=== PATIENT | female | born 1940 | race Caucasian/White ===

== ENCOUNTER → 2024-05-06 11:28 | Outpatient (REF) | payer MEDICARE, OTHER, SELFPAY ==
[2024-05-06 12:59] LABS: ALT (SGPT) 25 U/L (0-35); AST (SGOT) 35 U/L (14-36); Albumin 4.4 g/dl (3.5-5.0); Alkaline Phosphatase 58 U/L (38-126); Direct Bilirubin 0.2 mg/dl (0.0-0.4); HDL Cholesterol 51 mg/dl; LDL Cholesterol, Calculated 86 mg/dl; Total Bilirubin 1.2 mg/dl (0.2-1.3); Total Cholesterol 172 mg/dl (50-199); Total Protein 7.1 g/dl (6.3-8.2); Triglyceride 179 mg/dl (10-149); Very Low Density Lipoprotein 35 mg/dl (0-30)
== END ==
LOC: REG 11:28
PROVIDERS: ATTENDING PHYSICIAN Internal Medicine Cardiovascular Disease; FAMILY PHYSICIAN Internal Medicine
DX: E78.00 Pure hypercholesterolemia, unspecified (principal)
CPT/HCPCS: 36415; 80061; 80076

== ENCOUNTER 2024-07-30 05:21 | Emergency (ER) | payer MEDICARE, OTHER, SELFPAY ==
[2024-07-30 05:26] VITALS: BP 182/80
[2024-07-30 05:57] LABS: % Basophils 0.7 % (0-2); % Eosinophils 2.7 % (0-6); % Immature Granulocytes 0.2 % (0-0.5); % Lymphocytes 28.5 % (20.5-51.1); % Monocytes 8.4 % (1.7-9.3); % Neutrophils 59.5 % (42.2-75.2); Absolute Eosinophils 0.2 10^3/uL (0-0.7); Absolute Lymphocytes 1.7 10^3/uL (1.2-3.4); Absolute Monocytes 0.5 10^3/uL (0.1-0.6); Absolute Neutrophils 3.5 10^3/uL (1.4-6.5); Hematocrit 44.8 % (37.0-47.0); Hemoglobin 15.7 g/dL (12.0-16.0); Mean Corpuscular Hgb 31.5 pg (27.0-31.0); Mean Platelet Volume 9.2 fL (7.4-10.4); Nucleated Red Blood Cells % 0 %; Platelet Count 220 10^3/uL (130-400); Red Blood Cell Count 4.98 10^6/uL (4.20-5.40); Red Cell Dist. Width 13.2 % (11.5-14.5); White Blood Cell Count 5.9 10^3/uL (4.8-10.8)
[2024-07-30 06:11] LABS: ALT (SGPT) 24 U/L (0-35); AST (SGOT) 31 U/L (14-36); Albumin 4.5 g/dl (3.5-5.0); Alkaline Phosphatase 63 U/L (38-126); Blood Urea Nitrogen 18 mg/dl (7-17); Calcium 9.5 mg/dl (8.4-10.2); Carbon Dioxide 29 mmol/L (22-30); Chloride 100 mmol/L (98-107); Glucose 110 mg/dl (70-99); Potassium 4.1 mmol/L (3.5-5.1); Sodium 143 mmol/L (135-145); Total Bilirubin 0.6 mg/dl (0.2-1.3); Total Protein 7.6 g/dl (6.3-8.2); eGFR > 60.00
[2024-07-30 06:23] LABS: Troponin I < 0.012 ng/ml
[2024-07-30 06:26] VITALS: BP 151/85
[2024-07-30] MEDS: TORADOL 15 MG IV (06:56)
[2024-07-30 06:59] VITALS: BMI 25.4
[2024-07-30 07:00] VITALS: BP 147/90
--- NOTE | 2024-07-30 07:57 | ED.GENMED ---
History of Present Illness
General
Chief Complaint: Chest Pain
Source: patient
Exam Limitations: none
Time Seen by Provider: 07/30/24 06:39
History of Present Illness
History of Present Illness:
83-year-old female with history of coronary disease who presents for evaluation of left back pain and pain into her left chest. She states pain began about 2 days ago. She states the pain in her chest then she noticed yesterday. This morning she
woke up with the pain in the back but also to the chest. She states that it sort of woke her up but she admits that she has not been able to sleep very well with the back pain. She denies any injury. No fall. No shortness of breath. No
pleuritic pain. No leg swelling. No vomiting. States she has been followed by cardiology and has been doing quite well regarding her coronary disease.
Past History
Past History
ED Past Medical History: CAD, GERD, HTN and Hypercholesterolemia
ED Past Surgical History: Cholecystectomy and Gynecological
Social History
Tobacco: Non-smoker
Alcohol: None
Family History
Family History: CAD
Phy Exam
Physical Exam
Physical Exam:
CONSTITUTIONAL Patient alert and oriented to person, place and time. Well-appearing. Vital signs reviewed.
HEAD atraumatic, normocephalic.
EYES eyelids normal to inspection, Extraocular muscles intact, Conjunctiva normal, Sclera normal.
NECK normal range of motion, Trachea midline, no jugular venous distention.
RESPIRATORY CHEST No respiratory distress noted, Chest expansion equal, Bilateral breath sounds clear.
CARDIOVASCULAR regular rate and rhythm, Heart sounds normal.
ABDOMEN abdomen nontender, Bowel sounds normal. No distention.
BACK normal inspection, no obvious deformities
UPPER EXTREMITY range of motion normal, Motor strength normal, no cyanosis, no edema.
LOWER EXTREMITY range of motion normal, Motor strength normal, no cyanosis, no edema.
NEURO Speech normal, No focal motor deficits, [place] coma scale 15, Memory normal, Cranial Nerves intact to screening exam.
SKIN skin warm, dry, and normal in color.
Scores
Heart Score for Chest Pain Patients
STEMI patient?: No
History: Slightly or Non-Suspicious
ECG: Normal
Age: >/= 65 years
Risk Factors: >/= 3 Risk Factors or History of CAD
Troponin: </= Normal Limit
Heart Score for Chest Pain Patients: 4
Heart Score Risk: 20.3% MACE over next 6 weeks
Course
Orders/Labs/Results
Orders:
Orders
07/30/24 05:22
ECG [Electrocardiogram (*1)] Urgent
Reason for Study: Chest Pain
07/30/24 05:23
EKG- Treatment ONCE
07/30/24 05:38
Complete Blood Count/With Diff Urgent
Comprehensive Metabolic Panel Urgent
Lipase Urgent
Comment: ADD ON
Troponin I Urgent
07/30/24 06:47
CR Chest - 2 Views Urgent
Comment:
Reason For Exam: L chest and back pain
07/30/24 06:48
Ketorolac [Toradol] 15 mg IV NOW STA
07/30/24 08:40
Add On- LAB Urgent
Tests Added?: lipase
Abnormal Lab Results
07/30/24
05:38
MCH 31.5 H pg
(27.0-31.0)
BUN 18 H mg/dl
(7-17)
Glucose 110 H mg/dl
(70-99)
07/30/24 05:38
07/30/24 05:38
Vital Signs
Initial and Last Documented VS:
Initial Vital Signs
Temp Pulse Resp BP Pulse Ox
97.8 F 55 22 182/80 98
07/30/24 05:26 07/30/24 05:26 07/30/24 05:26 07/30/24 05:26 07/30/24 05:26
Last Documented Vital Signs
Temp Pulse Resp BP Pulse Ox
97.8 F 62 15 174/77 98
07/30/24 05:26 07/30/24 08:15 07/30/24 08:15 07/30/24 08:00 07/30/24 08:15
MDM/Problems Addressed
Differential Diagnosis Includes:
Musculoskeletal etiology, ACS, PE, pneumothorax, pneumonia
MDM/Problems Addressed:
Back pain, chest pain
*Pulse Oximetry
Patient hypoxic: no
*EKG
Interpreted by ED Provider?: Yes
Interpretation: abnormal
Rate: bradycardiac
Rhythm: sinus
[place]: normal axis
Interval: normal interval
Ischemia: no ischemia
*[employer] Interpretation
Rate: bradycardiac
Interpretation: abnormal
Rhythm: sinus
*Critical Care Note
Total Time (30-74mins, 75-104mins- exclusive of procedures): Not Applicable
Data Reviewed
Source: patient
Further Testing Considered But Not Given:
Consider CT but no hypoxia or shortness of breath
Patient Management
Escalation/DeEscalation of care consider admission/obs:
Patient appears quite well. Suspect musculoskeletal etiology. Troponin negative despite 2 days of back symptoms and 1 full day of chest pain that has been constant. Okay for discharge outpatient follow-up
ED Attending Note
-
Portions of this chart may have been created with voice recognition software.� Occasional wrong word or��sound alike� substitutions may have occurred due to the inherent limitations of voice recognition software.
Discharge Plan
Departure
Patient Disposition: Home (Routine Discharge)
Date of Disposition: 07/30/24
Time of Disposition: 08:04
Patient with high blood pressure during this ER visit?: Yes
Discharge Problem:
Chest pain, Back pain
Instructions: Chest Pain CBC Follow Up, Chest Pain PCP Follow Up
Prescriptions:
New
ketorolac 10 mg tablet
10 mg PO Q8H PRN (Reason: Pain) 3 Days Qty: 10 0RF
No Action
aspirin 81 MG tablet,delayed release (DR/EC)
81 mg PO DAILY
ramipril 10 MG capsule
10 mg PO DAILY
rosuvastatin [Crestor] 10 MG tablet
10 mg PO DAILY
hydrochlorothiazide 25 MG tablet
25 mg PO DAILY
carboxymethylcell-glycerin(PF) [Refresh Optive Sensitive (PF)] 1 EACH dropperette
1 drp LEFT EYE DAILY
pantoprazole 40 MG tablet,delayed release (DR/EC)
40 mg PO DAILY
cyclosporine [Restasis] 10 DROPS dropperette
0.4 ml OPHTHALMIC BID
Referrals:
Etta Bartholomew MD [Family Provider] -
Activity Restrictions/Additional Instructions:
Please see your doctor in the next 3 to 5 days for follow-up and reevaluation. Return immediately for worsening symptoms, shortness of breath, fevers or any other concerns.
Interventions
Interventions:
*Risk Screen - Suicide Last Done: 07/30/24 05:26
*General Assessment Last Done: 07/30/24 06:59
*Neglect/Abuse Screening Last Done: 07/30/24 05:26
ED- Fall Risk Assessment Last Done: 07/30/24 08:39
*ED COVID-19 Vaccine History Last Done: 07/30/24 06:59
*Nursing Disposition Last Done: 07/30/24 08:39
ED- Cardiac Assessment Last Done: 07/30/24 06:59
Discharge Date and Time
Discharge Date/Time: 07/30/24 08:40
Print Language: TAMAZIGHT
[2024-07-30 08:00] VITALS: BP 174/77
[2024-07-30 09:14] LABS: Lipase 184 U/L (23-300)
== END 2024-07-30 08:40 | disposition home or self-care (01) ==
LOC: EMR 05:21
PROVIDERS: Emergency Medicine; EMERGENCY PHYSICIAN Emergency Medicine; FAMILY PHYSICIAN Internal Medicine
DX: M54.9 Dorsalgia, unspecified (principal); R07.89 Other chest pain; I25.10 Atherosclerotic heart disease of native coronary artery without angina pectoris; K21.9 Gastro-esophageal reflux disease without esophagitis; I10 Essential (primary) hypertension; E78.00 Pure hypercholesterolemia, unspecified; Z82.49 Family history of ischemic heart disease and other diseases of the circulatory system; Z90.49 Acquired absence of other specified parts of digestive tract
CPT/HCPCS: 99283; 96374; 71046; 80053; 83690; 84484; 85025; 93005

== ENCOUNTER 2024-08-03 10:59 | Inpatient (IN) | payer MEDICARE, OTHER, SELFPAY ==
[2024-08-01 22:33] VITALS: BP 125/87
[2024-08-01 22:52] LABS: % Basophils 0.6 % (0-2); % Eosinophils 3.2 % (0-6); % Immature Granulocytes 0.2 % (0-0.5); % Lymphocytes 33.4 % (20.5-51.1); % Neutrophils 54.6 % (42.2-75.2); Absolute Eosinophils 0.2 10^3/uL (0-0.7); Absolute Lymphocytes 2.2 10^3/uL (1.2-3.4); Absolute Monocytes 0.5 10^3/uL (0.1-0.6); Absolute Neutrophils 3.6 10^3/uL (1.4-6.5); Hematocrit 41.5 % (37.0-47.0); Hemoglobin 14.8 g/dL (12.0-16.0); Mean Corp Hgb Conc. 35.7 g/dL (33.0-37.0); Mean Corpuscular Hgb 31.6 pg (27.0-31.0); Mean Corpuscular Volume 88.7 fL (81.0-99.0); Mean Platelet Volume 9.4 fL (7.4-10.4); Nucleated Red Blood Cells % 0 %; Platelet Count 210 10^3/uL (130-400); Red Blood Cell Count 4.68 10^6/uL (4.20-5.40); Red Cell Dist. Width 13.4 % (11.5-14.5); White Blood Cell Count 6.6 10^3/uL (4.8-10.8)
[2024-08-01 23:10] LABS: ALT (SGPT) 21 U/L (0-35); AST (SGOT) 30 U/L (14-36); Albumin 4.3 g/dl (3.5-5.0); Alkaline Phosphatase 53 U/L (38-126); Blood Urea Nitrogen 20 mg/dl (7-17); Calcium 9.5 mg/dl (8.4-10.2); Carbon Dioxide 29 mmol/L (22-30); Chloride 103 mmol/L (98-107); Glucose 138 mg/dl (70-99); Potassium 3.8 mmol/L (3.5-5.1); Sodium 143 mmol/L (135-145); Total Bilirubin 0.7 mg/dl (0.2-1.3); Total Protein 7.1 g/dl (6.3-8.2); eGFR > 60.00
[2024-08-01 23:16] LABS: Troponin I < 0.012 ng/ml
[2024-08-02] VITALS (14 sets, daily range): BP systolic 123–216; BP diastolic 62–203; BMI 25.0; BMI 24.4
--- NOTE | 2024-08-02 01:10 | ED.GENMED ---
History of Present Illness
General
Chief Complaint: Chest Pain
Source: patient
Exam Limitations: none
Time Seen by Provider: 08/02/24 00:34
History of Present Illness
History of Present Illness:
This is a 83 year old female that comes in with c/o chest and back pain. States that she has been here for the same reason this week. States that the pain seems to be getting worse. States that she was also seen at [facility] and given and muscle
relaxer. Patient was also give Toradol 10mg [id number] here. States that this is not helping. States that the pain is on the left side and goes down the back. State that last night she had chest pain but no back pain. Tonight she has chest and back
pain. States that the pain never stops. states that she has some abd pain and nausea. Denies any fever, chills, SOB, vomiting, diarrhea, headache, dizziness, urinary burning.
Past History
Past History
ED Past Medical History: CAD, GERD, HTN, Hypercholesterolemia and Other (Belly's palsey,)
ED Past Surgical History: Cardiac (stents), Cholecystectomy, Gynecological ([place]) and Other (surgery for droopy eye , Partial thyroidectomy, Tummy tuck, )
Social History
Tobacco: Non-smoker
Alcohol: None
Personal:
Living: alone
Family History
Family History: CAD
Review of Systems
Review of Systems
All Other Systems: ROS reviewed and negative except as documented in HPI and ROS
Constitutional: Reports no symptoms; Denies fever or chills
EENT: Reports no symptoms
Cardiac: Reports chest pain
ABD/GI: Reports abdominal pain and nausea; Denies vomiting or diarrhea
: Reports no symptoms; Denies dysuria, frequency or urgency
Musculoskeletal: Reports back pain (Left sided)
Skin: Reports no symptoms
Neurological: Reports no symptoms; Denies dizzy or headache
Psychiatric: Reports no symptoms
Phy Exam
General Physical Exam
General Presentation: well appearing and no apparent distress
General age: appears stated age
General Skin: warm and dry
General Habitus: elderly
General Mental: alert
General Hydration: appears well hydrated
ENT Exam
ENT Exam: TM's normal, pharynx normal and neck supple
Eye Exam
Eye Exam: EOMI
Cardiovascular Exam
Cardiovascular Exam: regular rate/rhythm, no edema and normal peripheral pulses
Pulmonary Exam
Pulmonary Exam: lungs clear, no respiratory distress, no rales, chest non tender, no crackles, no rhonchi, no wheezing and no cough
Gastrointestinal Exam
Gastrointestinal Exam: normal bowel sounds, non tender, soft, no organomegaly, no pulsatile mass and non distended
Musculoskeletal Exam
Musculoskeletal Exam: full ROM and no edema
Skin Exam
Skin Exam: normal color, warm/dry and no petechia
Scores
Heart Score for Chest Pain Patients
STEMI patient?: No
History: Slightly or Non-Suspicious
ECG: Normal
Age: >/= 65 years
Risk Factors: >/= 3 Risk Factors or History of CAD
Troponin: </= Normal Limit
Heart Score for Chest Pain Patients: 4
Heart Score Risk: 20.3% MACE over next 6 weeks
Course
Orders/Labs/Results
Orders:
Orders
08/01/24 22:26
EKG [Electrocardiogram (*1)] Urgent
Reason for Study: Chest Pain
EKG- Treatment ONCE
08/01/24 22:37
Cardiac Monitoring- Treatment ONCE
IV Insert/Care/Rem.- Treatment PRN
08/01/24 22:43
Complete Blood Count/With Diff Urgent
Comprehensive Metabolic Panel Urgent
Troponin I Urgent
08/02/24 01:09
CT Thoracic Spine W/o Iv Contr Urgent
Comment:
Reason For Exam: Pain
08/02/24 01:10
HYDROmorphone [Dilaudid] 0.5 mg IV NOW STA
Ondansetron Injectable [Zofran] 4 mg IV NOW STA
08/02/24 01:18
EKG- Treatment ONCE
08/02/24 01:20
Hydrochlorothiazide [Oretic] 25 mg PO NOW STA
08/02/24 01:28
Ramipril [Altace] 10 mg PO NOW STA
08/02/24 01:32
D-Dimer Urgent
Troponin I Urgent
08/02/24 01:45
Electrocardiogram (*1) Urgent
Reason for Study: Chest Pain
Other Reason for Exam: Repeat with Troponin
08/02/24 03:12
CT Chest Angio W/wo Iv Contras Urgent
Comment:
Reason For Exam: Chest pain, back pain
08/02/24 05:28
HYDROmorphone [Dilaudid] 0.25 mg IV NOW STA
08/02/24 05:31
Admit/Transfer Patient As Directed
Co-Sign Provider:
Level of Care: Observation services
Assign to:: Telemetry
Physician / Group: hospitalist
Diagnosis: atypical chest pain
Reason for Telemetry: Chest Pain syndromes
Date to Stop Telemetry: 08/04/24
Time to Stop Telemetry: 11:00
PRN Pain Medication Management As Directed
May give lesser potent ordered pain med per pt: Yes
preference::
Protocol:: Medication orders for pain may be administered in a
manner that supports deferring to patient preference
when the pt is:
- Requesting an ordered lesser potent pain medication.
Least to most potent pain medications are defined
as: acetaminophen < NSAID < tramadol < opioids
(morphine, oxycodone, hydromorphone).
- Requesting a lesser dose of the same medication IF
ORDERED.
- Requesting a less intrusive route of administration
if both routes are prescribed by the provider (PO <
IV).
08/02/24 05:32
Code Status As Directed
Resuscitation Status: Full Code
08/02/24 05:35
US Abdomen Complete/Upper Routine
Reason For Exam: ?colic, eval biliary dilation, panc mass/duct
08/02/24 05:38
Lorazepam [Ativan] 0.5 mg PO NOW STA
08/02/24 Breakfast
Cholesterol Lowering
At Your Request: Full Participation
Cholesterol Lowering: Sodium, 2 Gram
Flush (0.9% Sodium Chloride) [Flush (Nss)] See Dose Instructions IV PER PROTOCOL
08/02/24 08:00
Aspirin Low Dose EC [Aspir Low (Enteric Coated)] 81 mg PO DAILY
Hydrochlorothiazide [Oretic] 25 mg PO DAILY
Pantoprazole [Protonix] 40 mg PO DAILY
Ramipril [Altace] 10 mg PO DAILY
Rosuvastatin Calcium [Crestor] 10 mg PO DAILY
08/02/24 08:13
CARDIOLOGY CONSULT Routine
Consulting Provider: Daniel Jaffe
Was physician already notified: Yes
08/02/24 08:36
EKG [Electrocardiogram (*1)] Routine
Reason for Study: Chest Pain
EKG PRN [ECG as needed] As Directed
ECG as needed for:: Chest Pain
Rhythm Change
08/02/24 09:00
Amlodipine [Norvasc] 10 mg PO DAILY
08/02/24 09:28
Acetaminophen [Tylenol] 650 mg PO Q4HWA
Bisacodyl [Dulcolax] 10 mg RECTAL [id number] PRN
Docusate W/Senna [Senokot-S] 1 tablet PO BIDPRN PRN
HYDROmorphone [Dilaudid] 0.5 mg IV Q4HPRN PRN
HydrALAZINE [Apresoline] 5 mg IV Q4HPRN PRN
Ondansetron Injectable [Zofran] 4 mg IV Q6HPRN PRN
Oxycodone [Roxicodone] 5 mg PO Q4HPRN PRN
Polyethylene Glycol Powder [Miralax] 17 grams PO DAILYPRN PRN
08/02/24 09:28
Activity As Directed
Activity Level: With Assistance
Pneumatic Compression Sleeves As Directed
Type: Knee high
Vital Signs As Directed
Frequency: Per unit guidelines
DX Deep Vein Thrombosis Video Routine
08/02/24 09:39
Troponin I Routine
08/02/24 16:13
Ketorolac [Toradol] 15 mg IV Q6HPRN PRN
Oxycodone [Roxicodone] 10 mg PO Q4HPRN PRN
08/02/24 22:00
Valacyclovir HCl [Valtrex] 1,000 mg PO BID
08/03/24 06:00
Echo 2D MMode Color/Doppler IN AM
Reason for Study: chest pain
08/03/24 06:42
Precautions As Directed
Type of Precautions: Droplet
Comment: shingles
08/03/24 08:18
Basic Metabolic Panel IN AM
CRP [C-Reactive Protein] IN AM
ESR [Erythrocyte Sed Rate] IN AM
08/04/24 11:00
DC Protocol for Telemetry ONCE
Abnormal Lab Results
08/01/24 08/03/24
22:43 08:18
MCH 31.6 H pg
(27.0-31.0)
BUN 20 H mg/dl 23 H mg/dl
(7-17) (7-17)
Glucose 138 H mg/dl 128 H mg/dl
(70-99) (70-99)
08/01/24 22:43
08/03/24 08:18
Dehydration, Hyperglycemia, Troponin <0.012, Second Troponin <0.012, D-dimer 0.46
Vital Signs
Initial and Last Documented VS:
Initial Vital Signs
Temp Pulse Resp BP Pulse Ox
98.0 F 66 18 125/87 97
08/01/24 22:33 08/01/24 22:33 08/01/24 22:33 08/01/24 22:33 08/01/24 22:33
Last Documented Vital Signs
Temp Pulse Resp BP Pulse Ox
97.6 F 66 18 109/53 96
08/03/24 12:09 08/03/24 12:09 08/03/24 12:09 08/03/24 12:09 08/03/24 12:09
MDM/Problems Addressed
Differential Diagnosis Includes:
Coronary syndrome, Aortic dissection, thoracic spine herniation,
MDM/Problems Addressed:
This is a 83 year old female that comes in with c/o back and chest pain. States that she has been here for this before and has also been to [facility]. Patient states that it is getting worse.
will check labs. CT thoracic spine. Medicate for pain
Repeat ECG: rate 56, Sinus juan m. left axis. normal QRS, negative or ischemia.
Back into see patient and son. Explained that her blood work shows some dehydration but both Troponin are normal along with D-dimer. CT of the thoracic spine negative for any acute process. Will get CTA of chest to r/o aortic dissection. Patient BP
also keeps elevating and she is pain free at this time. Patient may also need to see rock picker since she has been her multiple time and no better. Hospitalist to admit.
Chronic conditions affecting care: CAD
Acute Exacerbation and/or Progression of Chronic Illness: CAD
*Radiology
Radiology exam reviewed: radiology read reviewed (CT night hawk Thoracic spine- No acute fracture or malalignment. Mild thoracic spondylosis. No acute soft tissue injury, CTA=Degenerative changes of the thoracic spine. No findings to suggest
thoraci spinal fracture. No evidence of thoracic aortic dissection or central pulmonary embolism. ) and all reviewed NAD by ED Provider (CTA cont- Old granulomatous disease, as noted above. Small hiatal hernia. )
*Pulse Oximetry
Patient hypoxic: no
*EKG
Interpreted by ED Provider?: Yes
Heart Rate: 62
Rate: normal
Rhythm: sinus
[place]: normal axis
Interval: normal interval
QRS Pattern: normal QRS
Ischemia: no ischemia
*[facility] Clerk Interpretation
Rate: bradycardiac
Heart Rate: 58
Rhythm: PVC's
*Critical Care Note
Total Time (30-74mins, 75-104mins- exclusive of procedures): Not Applicable
ED Attending Note
-
Portions of this chart may have been created with voice recognition software.� Occasional wrong word or��sound alike� substitutions may have occurred due to the inherent limitations of voice recognition software.
Discharge Plan
Departure
Patient Disposition: Admit
Date of Disposition: 08/02/24
Time of Disposition: 03:19
Admit to: Telemetry
Presentation/result/management discussed w/ accepting MD/DO: Hospitalist
Patient with high blood pressure during this ER visit?: Yes
Condition: Good
Covid-19: Not Applicable
Discharge Problem:
Chest pain, Upper back pain on left side
Interventions
Interventions:
*Risk Screen - Suicide Last Done: 08/01/24 22:37
*General Assessment Last Done: 08/01/24 22:37
*Neglect/Abuse Screening Last Done: 08/01/24 22:37
ED- Fall Risk Assessment Last Done: 08/02/24 00:05
*ED COVID-19 Vaccine History Last Done: 08/01/24 22:37
*Nursing Disposition Last Done: 08/02/24 09:34
ED- Cardiac Assessment Last Done: 08/02/24 00:05
ED-Musculoskeletal Assessment Last Done: 08/02/24 00:05
Discharge Date and Time
Discharge Date/Time: 08/02/24 09:34
[2024-08-02] MEDS: ZOFRAN 4 MG IV (01:35)
[2024-08-02] MEDS: DILAUDID 0.5 MG IV (01:37)
[2024-08-02] MEDS: ORETIC 25 MG PO ×2 (01:40→10:06)
[2024-08-02 02:00] LABS: D-Dimer 0.46 ug/mlFEU (0.00-0.50)
[2024-08-02 02:13] LABS: Troponin I < 0.012 ng/ml
[2024-08-02] MEDS: ALTACE 10 MG PO ×2 (02:16→10:05)
--- NOTE | 2024-08-02 05:12 | HPS.HSE ---
Family Physician
-
Family Physician: Etta Bartholomew
Chief Complaint
-
Chest and back pain
History of Present Illness
This is an 83-year-old female with past medical history significant for CAD status post PCI, GERD, hypertension, hyperlipidemia presenting to the emergency department with approximately 2 weeks back and chest discomfort that appeared to have been
worse over the last 3 to 4 days.
Patient reported that she had suddenly woken up 2 weeks ago complaining of back pain located in between her shoulder blades. It was initially nonradiating but soon after she says it radiates down to her lower back. She also associates it with
chest pain without dyspnea on exertion, exertional chest pain, nausea vomiting or diaphoresis. Patient reported that when she initially had this symptom 2 weeks ago she was concerned about pancreatic cancer because she had a spouse who
from pancreatic cancer that had back pain as presenting symptom. She has been in the emergency department 3 days ago with complaint of back pain. As well as chest pain. At that time she stated that the pain was a 7 out of 10. She was given
Toradol. Pain improved somewhat and patient was able to go home. However she said this time around the pain has been persistent and the Toradol was ineffective at home. She also went to urgent care and was tested for a UTI which was negative.
She was then given Robaxin for as a muscle relaxant which he said was not effective. When prompted patient did say that the pain was worse laying down and she is unable to sleep at night. She has no palpitations lightheadedness or dizziness.
Patient said that she had been taking tirzepatide for weight loss and has had about a 15 Ib weight loss recently. She has been weaned off the medication.
In the emergency department she has been hypertensive to the 190s over 90, pulse in the 50s and satting 97% on room air. ECG showed normal sinus rhythm rate of [address] or T wave changes. Is unchanged from prior. Troponin was negative x
2 3 hours apart. CBC was complete within normal limits. Chemistries were also completed within normal limits.
Patient had a CT angiogram which showed no evidence of pulmonary embolism. There was no dissection or aneurysm. There was no fluid around the heart and there was no focal infiltrate, effusion or edema.
She received Dilaudid in the emergency department which is a markedly improved her pain but her only lasted a couple hours and is now back in significant pain.
Medical History
Past Medical History
Past Medical History: Reports CAD, GERD, HTN and Hypercholesterolemia
Past Surgical History: Reports Cholecystectomy and Other (Partial thyroidectomy)
Social History
Tobacco: Non-smoker
Alcohol: None
Drug: None
Personal:
Living: Alone
Employment: Retired
Family History
Family History: Not pertinent
Allergies / Home Medications
Allergies reflects when Allergies were last updated in [employer].
Home Medications with original date entered in [employer]
Allergy/Medication List:
Allergies
Allergy/AdvReac Type Severity Reaction Status Date / Time
Sulfa (Sulfonamide Allergy Unknown Verified 08/01/24 22:32
Antibiotics)
morphine AdvReac NAUSEA/VOMI Verified 08/01/24 22:32
TING
oxycodone [Oxycodone] AdvReac ANXIETY Verified 08/01/24 22:32
Home Medications
aspirin 81 mg tablet,delayed release 81 mg PO DAILY 05/26/11
ramipril 10 mg capsule 10 mg PO DAILY 05/26/11
hydrochlorothiazide 25 mg tablet 25 mg PO DAILY 10/02/11
rosuvastatin 10 mg tablet (Crestor) 10 mg PO DAILY 10/02/11
pantoprazole 40 mg tablet,delayed release 40 mg PO DAILY 04/18/16
ketorolac 10 mg tablet 10 mg PO Q8H PRN Pain 3 days #10 tabs 07/30/24
Review of Systems
-
History Source: Patient
Constitutional: Reports No Symptoms
EENT: Reports No Symptoms
Respiratory: Reports No Symptoms
Cardiac: Reports Chest Pain
Abdomen/GI: Reports No Symptoms
: Reports No Symptoms
Musculoskeletal: Reports Other (Back pain)
Skin: Reports No Symptoms
Neurological: Reports No Symptoms
Endocrine: Reports No Symptoms
Hematologic/Lymphatic: Reports No Symptoms
Psych: Reports No Symptoms
Physical Exam
Vital Signs
Vital Signs
Temp Pulse Resp BP Pulse Ox
98.0 F 57 17 190/90 97
08/01/24 22:33 08/02/24 02:16 08/02/24 02:00 08/02/24 03:10 08/02/24 02:19
Physical Exam
General: Well Developed, Well Nourished and No Apparent Distress
HEENT: NormoCephalic, Anicteric, Moist mucous membranes, Atraumatic and Good Dentition
Respiratory: Clear
Cardiac: S1/S2 and Regular Rhythm
GI: Soft
Rectal: Deferred by Provider
Genito-urinary: Deferred by me
Musculoskeletal: No Clubbing, No Cyanosis and No Edema
Neuro: AO x 3
Psych: Calm
Laboratory Results
-
08/01/24 22:43
08/01/24 22:43
Laboratory Results
Total Bilirubin 0.7 mg/dl (0.2-1.3) 08/01/24 22:43
AST 30 U/L (14-36) 08/01/24 22:43
ALT 21 U/L (0-35) 08/01/24 22:43
Alkaline Phosphatase 53 U/L (38-126) 08/01/24 22:43
Troponin I < 0.012 ng/ml 08/02/24 01:32
Data Reviewed
-
CT Scan: Report Reviewed by me
Medical Tests (Nuc Med, Echo, EKG etc): Image Personally Visualized and interpreted
Lab Data: Labs Reviewed by me
Old Records: Reviewed
Impression/Plan
-
IMPRESSION:
80-year-old female with history of CAD status post stenting, hypertension, hyperlipidemia, GERD who presents to the emergency department with 1 week of intermittent back pain starting in the upper back and radiating down as well as to the chest
worse with laying down and now unrelenting for the last 2 days despite NSAIDs at home. She is hypertensive in the emergency department. Troponin was negative. ECG was nonischemic with sinus bradycardia. Chemistries and CBCs were all within
normal limits. She had CT scan with angiogram showing absolutely no significant abnormalities. The pain is clearly atypical and noncardiac with 2 negative troponins. Pain out of proportion to findings on exam, labs and imaging. Patient seems to
be highly concerned that the pain could be coming or is related to pancreatic cancer due to spouse having had similar pain when he was diagnosed with pancreatic cancer 9 years ago.
PLAN:
1. Atypical Chest pain - Pain is out of proportion to exam. No PE, infiltrates, effusion. No dissection. No ischemia. Due to positioning and discomfort possibly pericardial vs musculoskeletal.
- admit to tele (due to uncontrolled bp, ACS has been ruled out)
- pain control, she requested and tolerated opioid, will add low dose oxycodone and continue acetaminophen and nsaids
- check esr/crp. In the abscence of pericardial effusion and ECg changes, negative inflammatory markers would rule out pericarditis
- check ltd abdominal u/s to evaluate for pancreatic and biliary anomalies
2. CAD
- continue aspirin and statin
- metoprolol succ 25
3. HTN
- continue metop, hctz and acei
- prn hydralazine
- lorazepam 0.5 x 1 for anxiety
4. GERD - unlikely worsening gerd
- continue ppi
DVT PPX - lovenox sq
Code Status - Full Code
[2024-08-02] MEDS: ATIVAN 0.5 MG PO (06:21)
[2024-08-02] MEDS: DILAUDID 0.25 MG IV (06:21)
--- NOTE | 2024-08-02 08:12 | W.PN.UPDATE ---
Update Note
Progress Note Update
Patient seen and examined. She was admitted at 5 AM this morning.
83-year-old female with a past medical history of CAD, GERD, hypertension, and hyperlipidemia has presented to the ER 08/01/2024 and 08/02/2024 for left-sided back pain, left-sided chest pain. Chest CT negative for PE, T-spine CT negative for
fracture, abdominal ultrasound also negative. Does not appear to have ACS. Patient sees Dr. Fink in the office. She also has hypertensive urgency. Consult cardiology, start amlodipine 10 mg daily, continue ramipril 10 mg daily,
hydrochlorothiazide 25 mg daily.
[2024-08-02] MEDS: TYLENOL 650 MG PO ×2 (10:05→19:46)
[2024-08-02] MEDS: ASPIR LOW (ENTERIC COATED) 81 MG PO (10:05)
[2024-08-02] MEDS: PROTONIX 40 MG PO (10:06)
[2024-08-02] MEDS: NORVASC 10 MG PO (10:06)
[2024-08-02] MEDS: CRESTOR 10 MG PO (10:06)
[2024-08-02 10:13] LABS: Troponin I < 0.012 ng/ml
[2024-08-02] MEDS: ROXICODONE 5 MG PO ×2 (10:39→19:03)
--- NOTE | 2024-08-02 10:49 | PTCARENOTE ---
Patient arrived to room on stretcher and ambulated to bed without assistance. Complaints of moderate pain from L side of back radiating to L side of chest. Dr. Gaspar with patient at bedside. Oxy and Tylenol given See DEC. Cardiology consulted.
[2024-08-02] MEDS: TYLENOL PO ×2 (14:17→17:16)
--- NOTE | 2024-08-02 17:08 | W.PN.CD ---
Today's Communication / Plan
-
-
Consult dictated
Plan:
- Check echo
- Will check CRP to look for evidence of inflammation that might support pericarditis
- The pain is so unlikely to be ischemic that a stress test will not be helpful
Impression / Plan
-
Non cardiac chest pain
Consider pericarditis, but certainly not classic
HTN
- I suspect that accelerated BP seen earlier was from pain/anxiety and was not the primary problem
CAD
Mixed hyperlipidemia
GERD
Physical Exam
Vital Signs/Labs
Vital Signs
Temp Pulse Resp BP Pulse Ox
97.5 F 59 20 123/62 95
08/02/24 15:51 08/02/24 15:51 08/02/24 15:51 08/02/24 15:51 08/02/24 15:51
08/01/24 08/02/24 08/03/24
06:59 06:59 06:59
Actual Weight 66 kg 64.41 kg
08/01/24 22:43
08/01/24 22:43
LAB Results
08/01/24 08/02/24 08/02/24
22:43 01:32 09:39
Troponin I < 0.012 < 0.012 < 0.012
Data Reviewed
-
Date of Service: August 02, 2024
--- NOTE | 2024-08-02 21:19 | PTCARENOTE ---
Pt noted this afternoon by dayshift nurse to have small rash L mid/upper back. Not open. No drainage. Examined at change of shift on walking rounds. When checked again around 2044 rash had increased in size and looks like shingles rash. Man RODRIGUEZ
came to bedside to examine. Rash covered with gauze. Valtrex ordered. Room blocked. Pt placed on contact precautions. Will continue to monitor.
[2024-08-02] MEDS: VALTREX 1000 MG PO (21:31)
[2024-08-03] MEDS: TYLENOL PO ×3 (00:10→16:00)
[2024-08-03 03:30] VITALS: BP 130/64
[2024-08-03] MEDS: ROXICODONE 5 MG PO ×2 (05:21→12:52)
--- NOTE | 2024-08-03 06:28 | W.PN.UPDATE ---
Update Note
Progress Note Update
Left upper back area suspicious for shingles. Valtrex started. Area covered. Moved to private room.�
[2024-08-03 07:43] VITALS: BP 137/65
[2024-08-03] MEDS: ALTACE 10 MG PO (09:06)
[2024-08-03] MEDS: ASPIR LOW (ENTERIC COATED) 81 MG PO (09:06)
[2024-08-03] MEDS: PROTONIX 40 MG PO (09:06)
[2024-08-03] MEDS: VALTREX 1000 MG PO (09:06)
[2024-08-03] MEDS: ORETIC 25 MG PO (09:06)
[2024-08-03] MEDS: TYLENOL 650 MG PO ×2 (09:07→12:47)
[2024-08-03] MEDS: NORVASC 10 MG PO (09:07)
[2024-08-03] MEDS: CRESTOR 10 MG PO (09:07)
[2024-08-03 09:08] LABS: Blood Urea Nitrogen 23 mg/dl (7-17); Calcium 9.2 mg/dl (8.4-10.2); Carbon Dioxide 25 mmol/L (22-30); Chloride 98 mmol/L (98-107); Estimated Creatinine Clearance 41 ml/min; Glucose 128 mg/dl (70-99); Potassium 4.1 mmol/L (3.5-5.1); Sodium 138 mmol/L (135-145); eGFR > 60.00
[2024-08-03 09:13] LABS: C-Reactive Protein < 5.00 mg/L (0.0-10.00)
--- NOTE | 2024-08-03 09:34 | W.PN.CD ---
Today's Communication / Plan
-
will follow up TTE
Impression / Plan
-
83-year-old female with a past medical history of CAD, GERD, hypertension, and hyperlipidemia who presented to the ER 08/01/2024 and 08/02/2024 for left-sided back pain, left-sided chest pain. Chest CT negative for PE, T-spine CT negative for
fracture, abdominal ultrasound also negative. Does not appear to have ACS give atypical nature of pain, negative ECG, normal troponin x3. Rash noted on her back concerning for possible Singles.
# Chest pain
- constant, non-positioning, non-reproducible
- possibly secondary to Shingles, less likely pericarditis
- TTE today pending
# HTN
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
- cont. amlodipine 10 mg daily, continue ramipril 10 mg daily, hydrochlorothiazide 25 mg daily
- f/u with Dr. Fink as outpatient
CAD
Mixed hyperlipidemia
GERD
Physical Exam
Vital Signs/Labs
Vital Signs
Temp Pulse Resp BP Pulse Ox
36.4 C 63 20 137/65 97
08/03/24 07:43 08/03/24 07:43 08/03/24 07:43 08/03/24 07:43 08/03/24 07:43
08/02/24 08/03/24 08/04/24
06:59 06:59 06:59
Actual Weight 66 kg 64.41 kg
08/01/24 22:43
08/03/24 08:18
LAB Results
08/01/24 08/02/24 08/02/24
22:43 01:32 09:39
Troponin I < 0.012 < 0.012 < 0.012
Physical Exam
Constitutional: No acute distress
Cardiovascular: Rhythm & rate is regular
Respiratory: Respiratory effort normal
Neuro/Psych: AO x 3
Data Reviewed
-
Date of Service: August 03, 2024
Medical Decision Making: Reviewed Test Results
EKG: Tracing Personally Visualized and interpreted
X-Ray/CT/US/MRI/NUC/PET: Report Reviewed by me
Labs: Labs Reviewed by me
--- NOTE | 2024-08-03 10:06 | CM ---
Pt seen bedside w/ friend. Pt lives alone in a 1ST[address]- no steps to enter.
Prev. independent. Denies DME
Denies SNF hx
Denies VN/PT hx
Denies financial insecurities
Address, point of contacts and insurance verified
PCP: Dr. Etta Michaels
Pharmacy: [facility]
BE reviewed, pt given copy. Copy put into chart
Plan: Home no needs anticipated
CM will cont to follow for any potential d/c needs
--- NOTE | 2024-08-03 10:12 | W.PN.HOSP.TC ---
Today's Communication/Plan
-
TTE today
Assessment / Plan
Assessment / Plan
Impression: 83-year-old female with a past medical history of CAD, GERD, hypertension, and hyperlipidemia who presented to the ER 08/01/2024 and 08/02/2024 for left-sided back pain, left-sided chest pain. Rash noted on her back concerning for
possible Singles. Chest CT negative for PE, T-spine CT negative for fracture, abdominal ultrasound also negative. Does not appear to have ACS give atypical nature of pain, negative ECG, normal troponin x3.
Assessment/Plan:
# Chest pain
- constant, non-positioning, non-reproducible
- possibly secondary to Shingles, less likely pericarditis
- TTE today pending
# HTN
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
- cont. amlodipine 10 mg daily, continue ramipril 10 mg daily, hydrochlorothiazide 25 mg daily
- f/u with Dr. Fink as outpatient
Left upper back area suspicious for shingles. Valtrex started. Area covered.
CAD
Mixed hyperlipidemia
GERD
Anticipated Discharge: Within 24 hours
Subjective/Interval History
-
Date of Service: August 03, 2024
Patient was seen and examined by me with her daughter by bedside. She reports intermittent left chest pain/discomfort that does not radiate. She also reports mild pain on her left mid/upper back. We discussed the possibility of shingles which she
gets in that area previously. She reports that application of Valtrex cream helps with the pain. She denies diaphoresis, tearing chest pain, abdominal pain, palpitations, fever, chills, nausea/vomiting.
Objective Data
-
Labs:
Laboratory Results
08/03/24
08:18
Sodium 138
Potassium 4.1
Chloride 98
Carbon Dioxide 25
BUN 23 H
Creatinine 0.9
Glucose 128 H
Calcium 9.2
Vital Signs:
Vital Signs
Temp Pulse Resp BP Pulse Ox
97.5 F 63 20 137/65 97
08/03/24 07:43 08/03/24 07:43 08/03/24 07:43 08/03/24 07:43 08/03/24 07:43
Review of Systems
-
History Source: Patient
All other systems: Not reviewed unless documented
Constitutional: Reports No Symptoms
Respiratory: Reports No Symptoms
Cardiac: Reports Chest Pain (Reports mild intermittent chest discomfort/pain); Denies Diaphoresis, Palpitations or Syncope
Abdomen/GI: Reports No Symptoms; Denies Abdominal Pain, Nausea or Vomiting
Musculoskeletal: Reports No Symptoms
Skin: Reports Itching (Left upper back) and Rash (Left upper back)
Physical Exam
-
General: Well Developed and No Apparent Distress
HEENT: Normocephalic, Atraumatic and Moist Mucous Membranes
Respiratory: Clear to Auscultation; Negative Wheezes or Crackles
Cardiac: Regular Rhythm and S1/S2; Negative Murmur, Rub or Gallop
GI: Soft, Nontender, Nondistended and Normal Bowel Sounds; Negative Organomegaly
Rectal: Deferred by Provider
Musculoskeletal: No Clubbing, No Cyanosis and No Edema
Skin: Warm and Rash (Left upper back blistering rash)
Neuro: Awake, Alert, Oriented, AO x 3 and Nonfocal/Grossly Intact
Psych: Calm and Intact Judgement/Insight
Data Reviewed
-
CT Scan: Report Reviewed by me and Discussed with Physician
Ultrasound: Report Reviewed by me and Discussed with Physician
Labs: Labs Reviewed by me and Discussed with Physician
Old Records: Reviewed
[2024-08-03 10:46] LABS: Erythrocyte Sed Rate 8 mm/hour (0-20)
[2024-08-03 12:09] VITALS: BP 109/53
[2024-08-03] MEDS: LYRICA 25 MG PO (14:04)
[2024-08-03 16:12] VITALS: BP 120/63
--- NOTE | 2024-08-03 16:42 | PTCARENOTE ---
Received patient this am AAO x3. Pt ambulating in room independently with a steady gait. Tolerated diet well. Pt off unit for echo. Pt complained of pain in left breast. Medicated with scheduled Tylenol Po and Roxicodone PRN with relief. Pt has
shingles on left posterior back. Made patient comfortable. Cont to assess patient status.
--- NOTE | 2024-08-03 18:11 | W.DCSUMMARY ---
Documented by User: Tony Gonzalez MD, Resident 08/03/24 18:25
Discharge Summary
Discharge Data
Date of Admission: 08/03/24
Date of Discharge: 08/03/24
-
Pending Results: No
Hospital Course
Discharging Physician : Jefferson De La Rosa DO; Tony Gonzalez MD
Disposition : Home
Primary care physician : Francine Bartholomew MD
Principal Discharge diagnosis : Chest pain, back pain, shingles
Chronic Discharge diagnosis : CAD, essential hypertension, GERD, hyperlipidemia
Hospital Course : 83-year-old female with PMH of CAD s/p stenting, essential hypertension, hyperlipidemia, GERD who presented to ED on 08/02/2024 with atypical chest pain and intermittent upper back pain worse with lying down. On presentation,
she was hypertensive, troponin was negative and ECG was remarkable for sinus bradycardia. CBC and CMP where WNL. Further evaluation with CXR, thoracic spine CT and CT angiography were all unremarkable.
While in the hospital, patient was seen in [place] with cardiology. An transthoracic echocardiography was also conducted and was also unremarkable. Patient has a rash around the left upper back consistent with shingles, and treatment with Valtrex
has been initiated. She was also started on pregabalin for pain.
Patient has been seen and examined and is deemed medically stable for discharge with instructions to follow-up with her primary care physician in less than 1 week and keep areas shingles covered at all times.
Important imaging findings :
Echo 08/03/2024
Normal left ventricular size, wall thickness and systolic function.
LV ejection fraction is greater than 75% by Barbosa's method of discs.
Normal right ventricular size and function.
No significant valvular disease.
Estimated pulmonary artery pressure of 20-25 mmHg. Assuming a right atrial
pressure of 3 mmHg.
Compared to prior from March 25, 2017, no significant change.
Abdominal ultrasound 08/02/2024
Cholecystectomy. No findings to suggest intrahepatic biliary tract dilatation. Enlarged common bile duct at 1.1 cm which may be the sequela of prior cholecystectomy (prior cholecystectomy and prominent common bile duct seen on remote prior CT
July 20, 2016. Pathologic enlargement of the common bile duct cannot be entirely excluded.
CT angiography 08/02/2024:
Degenerative changes of the thoracic spine.
No findings to suggest thoracic spinal fracture.
No evidence of thoracic aortic dissection or central pulmonary embolism.
Old granulomatous disease, as noted above.
Small hiatal hernia.
CXR 07/30/2024:
1. Clear lungs.
2. No significant change compared to prior study.
3. Small calcified granuloma or intrapulmonary lymph node projected over the right midlung zone, unchanged compared to prior chest x-ray.
Discharge Plan
-
Patient Disposition: Home (Routine Discharge)
Discharge Diagnosis/Procedures: Shingles/postherpetic neuralgia
Noncardiac chest pain
Condition: Good
Diet: No restrictions
Activity: As tolerated
Driving Restrictions: As prior to admission
Bathing Restrictions: None
Blood Work: None
Others Tests: None
Activity Restrictions/Additional Instructions:
Schedule follow-up appointment with family doctor within 7 to 10 days of discharge from the hospital
Instructions: Shingles
Referrals:
Etta Bartholomew MD [Family Provider] - in less than 1 week
Additional Discharge Medication Instructions: Continue Valtrex 1 g twice daily to complete 7-day course
Continue pregabalin 25 mg twice daily until you see your family doctor
Continue OTC Tylenol 625 mg as needed for pain
Can use OTC capsaicin cream applied to site of pain
Prescriptions:
New
pregabalin 25 mg Capsule
25 mg PO BID 30 Days Qty: 60 0RF
amlodipine 10 mg Tablet
10 mg PO DAILY 30 Days Qty: 30 0RF
acetaminophen 325 mg Tablet
650 mg PO Q4HWA 7 Days Qty: 20 0RF
valacyclovir 500 mg Tablet
1,000 mg PO BID 7 Days Qty: 28 0RF
Continued
aspirin 81 MG tablet,delayed release (DR/EC)
81 mg PO DAILY
ramipril 10 MG capsule
10 mg PO DAILY
rosuvastatin [Crestor] 10 MG tablet
10 mg PO DAILY
hydrochlorothiazide 25 MG tablet
25 mg PO DAILY
Refresh Optive Sensitive (PF) 1 EACH dropperette
1 drp LEFT EYE DAILY
pantoprazole 40 MG tablet,delayed release (DR/EC)
40 mg PO DAILY
cyclosporine [Restasis] 10 DROPS dropperette
0.4 ml OPHTHALMIC BID
Discontinued
ketorolac 10 mg tablet
10 mg PO Q8H PRN (Reason: Pain) 3 Days Qty: 10 0RF
Discharge Orders:
Discharge Patient (As Directed); Ordered 08/03/24
Ordered By: Tony Gonzalez
Discharge Date and Time
Print Language: IRISH

Documented by User: Jefferson De La Rosa DO 08/03/24 18:30
Discharge Summary
Discharge Data
Date of Admission: 08/03/24
Date of Discharge: 08/03/24
Discharge Plan
-
Patient Disposition: Home (Routine Discharge)
Discharge Diagnosis/Procedures: Shingles/postherpetic neuralgia
Noncardiac chest pain
Condition: Good
Diet: No restrictions
Activity: As tolerated
Driving Restrictions: As prior to admission
Bathing Restrictions: None
Blood Work: None
Others Tests: None
Activity Restrictions/Additional Instructions:
Schedule follow-up appointment with family doctor within 7 to 10 days of discharge from the hospital
Instructions: Shingles
Referrals:
Etta Bartholomew MD [Family Provider] - in less than 1 week
Additional Discharge Medication Instructions: Continue Valtrex 1 g twice daily to complete 7-day course
Continue pregabalin 25 mg twice daily until you see your family doctor
Continue OTC Tylenol 625 mg as needed for pain
Can use OTC capsaicin cream applied to site of pain
Prescriptions:
New
pregabalin 25 mg Capsule
25 mg PO BID 30 Days Qty: 60 0RF
amlodipine 10 mg Tablet
10 mg PO DAILY 30 Days Qty: 30 0RF
acetaminophen 325 mg Tablet
650 mg PO Q4HWA 7 Days Qty: 20 0RF
valacyclovir 500 mg Tablet
1,000 mg PO BID 7 Days Qty: 28 0RF
Continued
aspirin 81 MG tablet,delayed release (DR/EC)
81 mg PO DAILY
ramipril 10 MG capsule
10 mg PO DAILY
rosuvastatin [Crestor] 10 MG tablet
10 mg PO DAILY
hydrochlorothiazide 25 MG tablet
25 mg PO DAILY
Refresh Optive Sensitive (PF) 1 EACH dropperette
1 drp LEFT EYE DAILY
pantoprazole 40 MG tablet,delayed release (DR/EC)
40 mg PO DAILY
cyclosporine [Restasis] 10 DROPS dropperette
0.4 ml OPHTHALMIC BID
Discontinued
ketorolac 10 mg tablet
10 mg PO Q8H PRN (Reason: Pain) 3 Days Qty: 10 0RF
Discharge Orders:
Discharge Patient (As Directed); Ordered 08/03/24
Ordered By: Tony Gonzalez
Discharge Date and Time
Print Language: IRISH
== END 2024-08-03 19:26 | disposition home or self-care (01) | DRG 74 ==
LOC: 4 EAST ACU 10:59
PROVIDERS: Clinical Nurse Specialist Family Health; Emergency Medicine; Student in an Organized Health Care Education/Training Program; ADMITTING PHYSICIAN Internal Medicine; ATTENDING PHYSICIAN Internal Medicine; CONSULT PHYSICIAN Internal Medicine Cardiovascular Disease; EMERGENCY PHYSICIAN Student in an Organized Health Care Education/Training Program; FAMILY PHYSICIAN Internal Medicine
DX: B02.29 Other postherpetic nervous system involvement (principal); I25.10 Atherosclerotic heart disease of native coronary artery without angina pectoris; I10 Essential (primary) hypertension; K21.9 Gastro-esophageal reflux disease without esophagitis; K22.70 Barrett's esophagus without dysplasia; E78.2 Mixed hyperlipidemia; F41.9 Anxiety disorder, unspecified; Z60.2 Problems related to living alone
CPT/HCPCS: 71275; 72128; 76700; 80048; 80053; 84484; 85025; 85379; 85652; 86140; 93005; 93306; 96374; 96375; 99285; Q9967

== ENCOUNTER → 2024-12-07 11:06 | Outpatient (REF) | payer MEDICARE, OTHER, SELFPAY | LOC: PAVMRI 11:06 | PROVIDERS: ATTENDING PHYSICIAN Physician Assistant; FAMILY PHYSICIAN Internal Medicine | DX: M54.16 Radiculopathy, lumbar region (principal) | CPT/HCPCS: 72148 ==

== ENCOUNTER → 2025-02-17 12:01 | Outpatient (REF) | payer MEDICARE, OTHER, SELFPAY | LOC: HWRCS 12:01 | PROVIDERS: ATTENDING PHYSICIAN Internal Medicine Cardiovascular Disease; FAMILY PHYSICIAN Internal Medicine | DX: I25.10 Atherosclerotic heart disease of native coronary artery without angina pectoris (principal); R07.89 Other chest pain | CPT/HCPCS: 78452; 93017; A9500; J2785 ==

== ENCOUNTER → 2025-08-24 11:07 | Outpatient (REF) | payer MEDICARE, OTHER, SELFPAY ==
[2025-08-24 13:22] LABS: ALT (SGPT) 27 U/L (0-35); AST (SGOT) 35 U/L (14-36); Albumin 4.6 g/dl (3.5-5.0); Alkaline Phosphatase 61 U/L (38-126); HDL Cholesterol 50 mg/dl; LDL Cholesterol, Calculated 108 mg/dl; Total Protein 7.6 g/dl (6.3-8.2); Very Low Density Lipoprotein 27 mg/dl (0-30)
== END ==
LOC: REG 11:07
PROVIDERS: ATTENDING PHYSICIAN Internal Medicine Cardiovascular Disease; FAMILY PHYSICIAN Internal Medicine
DX: I25.10 Atherosclerotic heart disease of native coronary artery without angina pectoris (principal); I10 Essential (primary) hypertension; E78.00 Pure hypercholesterolemia, unspecified; Z95.5 Presence of coronary angioplasty implant and graft
CPT/HCPCS: 36415; 80061; 80076

== ENCOUNTER 2025-09-08 22:12 | Emergency (ER) | payer MEDICARE, OTHER, SELFPAY ==
[2025-09-08 22:14] VITALS: BP 186/91
--- NOTE | 2025-09-09 00:45 | ED.GENMED ---
History of Present Illness
General
Chief Complaint: Head Injury
Source: patient
Exam Limitations: none
Time Seen by Provider: 09/08/25 23:38
Nursing documentation reviewed up to this point in time: agreed with
History of Present Illness
History of Present Illness:
Patient is a 84-year-old female with history hypertension, hyperlipidemia, CAD who presents to the emergency department for evaluation following fall this evening. Patient states that earlier this evening she was walking into her yard to feed apple
slices to the deer and upon returning to her driveway she fell striking her head on the pavement. She is 100% confident that she did not lose consciousness. She thinks she may have tripped on the grass/edge of the pavement. She was able to get up
without assist and drove over to her friend's house where they then went to the movie theater.
Patient reports initially noticing a headache which has since resolved. She came to the emergency department for imaging given she struck her left temporal region on the pavement.
She denies any persistent headache. She has not had any nausea or episodes of vomiting. No dizziness or difficulty ambulating. She denies any neck pain, numbness/tingling or weakness in extremities. She denies any pain in arms or legs following
fall.
She takes a baby aspirin. 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
Past History
Past History
ED Past Medical History: CAD, GERD, HTN, Hypercholesterolemia and Other (Belly's palsey,)
ED Past Surgical History: Cardiac (stents), Cholecystectomy, Gynecological ([place]) and Other (surgery for droopy eye , Partial thyroidectomy, Tummy tuck, )
Social History
Tobacco: Non-smoker
Alcohol: None
Personal:
Living: alone
Family History
Family History: CAD
Review of Systems
Review of Systems
Allergies reviewed?: Yes
All Other Systems: ROS reviewed and negative except as documented in HPI and ROS
Phy Exam
Physical Exam
Physical Exam:
Vitals: Hypertensive, otherwise vital signs stable. Afebrile
General: Patient is well appearing, no acute distress
Skin: Warm and dry, no rashes or lesions
Head: Normocephalic, atraumatic
Eyes: Sclera nonicteric. Pupils equal round and reactive to light bilaterally. EOMs intact. No nystagmus.
Throat: Protecting airway
Neck: Normal ROM, no cervical spine tenderness, no meningismus
Cardiac: Regular rate and rhythm, no murmurs.
Pulm: Normal respiratory effort. Lungs clear bilaterally
Abdomen: No abdominal tenderness.
Extremities: No evidence of cyanosis or edema. Strength 5/5 in bilateral upper and lower extremities. Sensation intact
Neuro: AAOx3. CN II-XII grossly intact. No focal neurologic deficits.
Psychiatric: Normal affect.
Course
Orders/Labs/Results
Orders:
Orders
09/08/25 23:55
Electrocardiogram (*1) Urgent
Reason for Study: Fatigue / Weakness
Cervical Spine wo Contrast CT [CT Cervical Spine W/o Iv Contr] Urgent
Comment:
Reason For Exam: fall w/ headstrike
EKG- Treatment ONCE
09/08/25 23:56
CT Head W/o Iv Contrast Urgent
Comment:
Reason For Exam: fall w/ head strike
Vital Signs
Initial and Last Documented VS:
Initial Vital Signs
Temp Pulse Resp BP Pulse Ox
98.6 F 77 18 186/91 97
09/08/25 22:14 09/08/25 22:14 09/08/25 22:14 09/08/25 22:14 09/08/25 22:14
Last Documented Vital Signs
Temp Pulse Resp BP Pulse Ox
98.6 F 77 18 186/91 97
09/08/25 22:14 09/08/25 22:14 09/08/25 22:14 09/08/25 22:14 09/09/25 00:50
MDM/Problems Addressed
Differential Diagnosis Includes:
Not limited to: Mechanical fall, cardiac arrhythmia, scalp contusion, brain bleed, cervical spine fracture, etc.
MDM/Problems Addressed:
84-year-old female presenting after suspected mechanical fall at home with head strike. No LOC. Reports mild headache which has since resolved. No other neurologic symptoms including vomiting, visual changes, change in mental status, dizziness.
Patient not on any oral anticoagulation. Mildly hypertensive on arrival with otherwise stable vital signs. On exam, patient appears well and in no distress. She has no obvious evidence of head or neck trauma. She is alert and oriented without
any focal neurologic deficits. No evidence of extremity injuries.
Impression is likely mechanical fall. Patient is adamant that she did not lose consciousness. Do not suspect syncope. Offered lab work, patient states that she had recent lab work with cardiology less than 2 weeks ago which was reportedly normal.
Low suspicion for acute intracranial abnormality given reassuring exam however will obtain CT scan of head and cervical spine. Will check EKG.
Update: EKG reveals normal sinus rhythm without evidence of acute ischemia or arrhythmia.
Update: CT head and cervical spine without acute traumatic injuries. Patient is sitting up in chair, dressed and ready to go home. She states she feels well and is asymptomatic. Feel stable for discharge home strict return precautions and
outpatient follow-up.
Chronic conditions affecting care:
Hypertension
Acute Exacerbation and/or Progression of Chronic Illness:
Acutely hypertensive
*Radiology
Radiology exam reviewed: radiology read reviewed
*Pulse Oximetry
SaO2: 97
Oxygen Mode of Delivery: Room air
Patient hypoxic: no
*EKG
Interpreted by ED Provider?: Yes
EKG Intrepretation Date: 09/09/25
Interpretation: normal
Comparison EKG: no comparison EKG present
Heart Rate: 62
Rate: normal
Rhythm: sinus
[place]: normal axis
Interval: normal QT interval
QRS Pattern: normal QRS
Ischemia: no ischemia
*Pc Analyst Interpretation
Rate: Pc Analyst- N/A
*Critical Care Note
Total Time (30-74mins, 75-104mins- exclusive of procedures): Not Applicable
ED Attending Note
-
Portions of this chart may have been created with voice recognition software.� Occasional wrong word or��sound alike� substitutions may have occurred due to the inherent limitations of voice recognition software.
Discharge Plan
Departure
Patient Disposition: Home (Routine Discharge)
Date of Disposition: 09/09/25
Time of Disposition: 01:36
Patient with high blood pressure during this ER visit?: Yes
Discharge Problem:
Fall, Minor head injury
Instructions: Head Injury in Adults (DC), BLOOD PRESSURE
Prescriptions:
No Action
aspirin 81 MG tablet,delayed release (DR/EC)
81 mg PO DAILY
ramipril 10 MG capsule
10 mg PO DAILY
rosuvastatin [Crestor] 10 MG tablet
10 mg PO DAILY
hydrochlorothiazide 25 MG tablet
25 mg PO DAILY
Refresh Optive Sensitive (PF) 1 EACH dropperette
1 drp LEFT EYE DAILY
pantoprazole 40 MG tablet,delayed release (DR/EC)
40 mg PO DAILY
cyclosporine [Restasis] 10 DROPS dropperette
0.4 ml OPHTHALMIC BID
pregabalin 25 mg Capsule
25 mg PO BID 30 Days Qty: 60 0RF
amlodipine 10 mg Tablet
10 mg PO DAILY 30 Days Qty: 30 0RF
acetaminophen 325 mg Tablet
650 mg PO Q4HWA 7 Days Qty: 20 0RF
valacyclovir 500 mg Tablet
1,000 mg PO BID 7 Days Qty: 28 0RF
Referrals:
Etta Bartholomew MD [Family Provider, Internal Medicine] - Follow up in 5-7 days
Activity Restrictions/Additional Instructions:
RETURN TO THE EMERGENCY DEPARTMENT WITH ANY SEVERE HEADACHE OR NECK PAIN, INTRACTABLE VOMITING, PERSISTENT DIZZINESS OR LIGHTHEADEDNESS, REPEAT FALLS, BALANCE ALTE, WORSENING OF CURRENT SYMPTOMS, OR ANY OTHER CONCERNS
- As discussed your EKG showed a normal sinus rhythm without evidence of arrhythmia. Your CT imaging of your head and cervical spine showed no acute posttraumatic injuries
- You may take Tylenol as needed for headache.
- Please follow-up with your primary care provider for further evaluation/management to ensure that your symptoms are improving
Monitor your symptoms closely and return to the emergency department with any acute worsening/new symptoms or any other concerns
Interventions
Interventions:
*Risk Screen - Suicide Last Done: 09/08/25 22:14
*General Assessment Last Done: 09/08/25 22:14
*Neglect/Abuse Screening Last Done: 09/08/25 23:48
*ED COVID-19 Vaccine History Last Done: 09/08/25 23:48
*ED Influenza Vaccine History Last Done: 09/08/25 23:48
[facility] Risk Assessment Tool Last Done: 09/08/25 23:49
*Nursing Disposition Last Done: 09/09/25 01:42
ED- Neurological Assessment Last Done: 09/08/25 23:48
ED-Skin Assessment Last Done: 09/08/25 23:48
Discharge Date and Time
Discharge Date/Time: 09/09/25 01:43
Print Language: [id number]
== END 2025-09-09 01:43 | disposition home or self-care (01) ==
LOC: EMR 22:12
PROVIDERS: EMERGENCY PHYSICIAN Emergency Medicine; FAMILY PHYSICIAN Internal Medicine
DX: S09.90XA Unspecified injury of head, initial encounter (principal); W01.198A Fall on same level from slipping, tripping and stumbling with subsequent striking against other object, initial encounter; Y93.01 Activity, walking, marching and hiking; Y92.008 Other place in unspecified non-institutional (private) residence as the place of occurrence of the external cause; I25.10 Atherosclerotic heart disease of native coronary artery without angina pectoris; I10 Essential (primary) hypertension; E78.00 Pure hypercholesterolemia, unspecified; K21.9 Gastro-esophageal reflux disease without esophagitis; Z79.82 Long term (current) use of aspirin; Z95.5 Presence of coronary angioplasty implant and graft; Z82.49 Family history of ischemic heart disease and other diseases of the circulatory system
CPT/HCPCS: 99284; 70450; 72125; 93005